=== PATIENT | female | born 1965 | race Caucasian/White ===

== ENCOUNTER 2019-07-29 08:44 | Emergency (ER) | payer OTHER, SELFPAY ==
[2019-07-29 09:01] VITALS: BP 126/73; PULSE 60; RESP 16; TEMP 36.6; O2SAT 100
--- NOTE | 2019-07-29 09:22 | ED.SKABFB ---
HPI - Skin/Abscess/Foreign Bdy General Chief complaint: Skin/Abscess/Foreign Body Stated complaint: poison bryan History of Present Illness HPI narrative: This is a 54 year old female that comes in complaining of poison BRYNA that she has had for over a week that is progressively getting worse. Patient was trying treat the rash herself with no relief and now it is all over body and up to her neck Related Data Home Medications Medication Instructions Recorded Confirmed atorvastatin 10 mg DAILY 07/29/19 07/29/19 levothyroxine 50 mcg DAILY 07/29/19 07/29/19 triamterene-hydrochlorothiazid 1 cap DAILY 07/29/19 07/29/19 Allergies Allergy/AdvReac Type Severity Reaction Status Date / Time No Known Allergies Allergy Verified 07/29/19 08:51 Review of Systems Review of Systems: Narrative: CONSTITUTIONAL: Denies fever, chills, or sweats. EYES: Denies visual changes, redness, or discharge. ENT: Denies rhinorrhea, congestion, sore throat, or otalgia. CARDIOVASCULAR:Denies chest pain, palpitations, or edema. RESPIRATORY: Denies cough or dyspnea. GASTROINTESTINAL: Denies abdominal pain, nausea, vomiting, or diarrhea. GENITOURINARY: Denies dysuria or hematuria. SKIN: Reports rash or itching. MUSCULOSKELETAL:Denies back pain, joint pain, or myalgia. NEUROLOGIC: Denies headache, numbness, or weakness. PSYCHIATRIC:Denies anxiety or depression PMFSH Social History Social History Gender identity (if verbalized by the patient): Female Comments At time as signature, I have reviewed and agree with nursing past medical, social, surgical and family history. Please see nursing chart for further information. There is no relevant family history pertinent to the presenting complaint. Exam Narrative: Exam Narrative: GENERAL:Well-appearing, well-nourished, and in no acute distress. HEAD:Normocephalic, atraumatic. EYES: PERRLA and EOMI. ENT: Nares clear, no rhinorrhea or epistaxis. Mucous membranes moist. NECK: Supple. CHEST: Clear to auscultation. No respiratory distress. HEART: Regular rate and rhythm. No murmur heard. Normal peripheral pulses. ABDOMEN: Soft, nontender, nondistended, normal active bowel sounds. EXTREMITIES: Normal range of motion. No edema. SKIN: Warm, dry, severe erythema blister rash with some urticara NEURO: No focal deficits. Alert and oriented x3. Course Vital Signs Vital signs: Vital Signs Temperature 97.9 F 07/29/19 09:01 Pulse Rate 60 07/29/19 09:01 Respiratory Rate 16 07/29/19 09:01 Blood Pressure 126/73 07/29/19 09:01 Pulse Oximetry 100 07/29/19 09:01 Temperature 97.9 F 07/29/19 09:01 Pulse Rate 60 07/29/19 09:01 Respiratory Rate 16 07/29/19 09:01 Blood Pressure 126/73 07/29/19 09:01 Pulse Oximetry 100 07/29/19 09:01 MDM - Skin/Abscess/Foreign Bdy Differential Diagnosis Differential diagnosis: Likely abscess of skin or subcutaneous tissue, urticaria, allergic reaction to drug, cellulitis, eczema and contact dermatitis Discharge Plan Discharge Clinical Impression: Allergic dermatitis due to poison bryan Contact dermatitis Qualifiers: Contact dermatitis type: allergic Contact dermatitis trigger: non-food plants Qualified Code(s): L23.7 - Allergic contact dermatitis due to plants, except food Patient Disposition: Home, Self-Care Condition: Stable Instructions: Antibiotic Form, Contact Dermatitis (ED), Poison Bryan (ED) Additional Instructions: Use skin creams/lotion, such as those containing calamine or pramoxine to reduce itchiness Avoid scratching when possible to prevent worsening of the condition and disruption of the skin that could lead to bacterial infection To relieve itching, place a cool washcloth or some ice over the area that itches, rather than scratching Return to the office or seek ER visit if condition is not improving or worsens with fever, swelling, difficulty breathing or swallowing. you must avoid people that are sick due to yo
== END 2019-07-29 09:51 | disposition home or self-care (01) ==
PROVIDERS: Emergency Provider Nurse Practitioner Family; PCP Internal Medicine
DX: L23.7 Allergic contact dermatitis due to plants, except food (principal)
CPT/HCPCS: 96372; 99213; G0463; J1100